=== PATIENT | male | born 1945 | race Caucasian/White ===

== ENCOUNTER → 2022-06-30 | Outpatient (CLI) | payer MEDICARE ==
[~2022-06-30] MED LIST: CATHETER FLUSH 10 ML SYR IVP PRN
[2022-06-30 09:21] VITALS: BP 155/82
--- NOTE | 2022-06-30 11:36 | Cardiology Stress Test Report ---
Stress Test Report Date of Procedure/Referring: Date of Procedure: Jun 30, 2022 PCP Admitting Physician Admitting Physician: Attending Physician: Rocky Corona MD Indications: HTN Baseline Heart Rate: 64 Baseline Blood Pressure: Blood Pressure Systolic: 155 Blood Pressure Diastolic: 82 Vital Signs Date Time Temp Pulse Resp B/P (MAP) Pulse Ox O2 Delivery O2 Flow Rate FiO2 06/30/22 09:21 64 155/82 (106) Baseline Vital Signs Vital Signs Date Time Temp Pulse Resp B/P (MAP) Pulse Ox O2 Delivery O2 Flow Rate FiO2 06/30/22 09:21 64 155/82 (106) Baseline EKG: Baseline EKG: NSR Summary: After explaining the procedure and details to the patient, he signed the consent and was brought to the stress nuclear laboratory. Patient exercised on standard [place] protocol, EKG, heart rate and blood pressure were monitored continuously, resting and stress doses of radio tracer were injected, imaging was acquired and reviewed in the short axis, horizontal long axis and vertical long axis views Patient was able to exercise for a total of 8 minutes on [place] protocol, METs 9.7 Maximum heart rate 132 Maximum blood pressure 213/86 Stress EKG, Minimal nondiagnostic changes Recovery EKG, Return to baseline TID: 1.09 SSS: 2 SDS: 1 EF: 61 Conclusion: 1. Excellent exercise tolerance for a total of 8 minutes on standard [place] protocol, 9.7 METS achieving 91% of maximum expected heart rate 2. Appropriate heart rate response to exercise with hypertensive response to exercise with peak blood pressure 213/86 return to baseline during recovery 3. Nondiagnostic EKG changes with exercise return to baseline during recovery 4. No significant ischemia or infarction noted on SPECT images 5. Normal left ventricular size, ejection fraction 61% Copy Copies To 1: ELVIA CAIN MD, BASHAR J MD Jun 30, 2022 11:36
== END ==
LOC: CARD 07:38
PROVIDERS: ATTEND Internal Medicine Cardiovascular Disease
DX: I11.9 Hypertensive heart disease without heart failure (principal); I25.10 Atherosclerotic heart disease of native coronary artery without angina pectoris
CPT/HCPCS: 78452; 93017; A9502; C8929; 93306